=== PATIENT | male | born 1995 | race Two or more races ===

== ENCOUNTER 2017-11-29 10:54 | Emergency (ER) | payer SELFPAY ==
[~2017-11-29] VITALS: Ht 162.6 cm; Wt 59.0 kg
--- NOTE | 2017-11-29 11:10 | NUR ---
[id number]: OK TO BOOK. LACERATION TO NOSE BRIDGE. NAD NOTED, VSS, RESP EVEN AND UNLABORED, PT WAS PUT ON MONITOR, WAITING FOR MD CRENSHAW.
[2017-11-29 12:34] VITALS: BP 129/85
--- NOTE | 2017-11-29 12:34 | NUR ---
Patient discharged in custody in stable condition. Written and verbal after care instructions given.
== END 2017-11-29 12:36 ==
LOC: ER 10:56
DX: Z02.89 Encounter for other administrative examinations (principal); S00.31XA Abrasion of nose, initial encounter; X58.XXXA Exposure to other specified factors, initial encounter; Y93.89 Activity, other specified; Y92.89 Other specified places as the place of occurrence of the external cause; Y99.8 Other external cause status
CPT/HCPCS: A4606; Z7610